=== PATIENT | female | born 1970 | race African-American/Black ===

== ENCOUNTER 2018-03-07 07:39 | Emergency (ER) | payer BC ==
--- NOTE | 2018-03-07 07:45 | PDOC ---
History of Present Illness - General Chief Complaint: Allergic Reaction Stated Complaint: ITCHING AND HIVES Time Seen by Provider: 03/07/18 07:44 History Source: Patient Exam Limitations: No Limitations - History of Present Illness Initial Comments: 03/07/18 08:01 Ms. Horan is a 47-year-old female with a history of hypothyroidism who presents to the emergency department with a complaint of diffuse pruritus. Patient states that her symptoms began approximately 6 PM. She notes that her entire body is itching and feels as though it's on fire. She's had no difficulty swallowing, no drooling. No nausea, no vomiting, no diarrhea. No pain. She notes that every area of her skin is pruritic. No fever or chills. No recent antibiotic use. No recent changes in medication. No recent travel. No arthropod bites. She lives in [place], has not gone camping. No history of anaphylaxis. Her symptoms have been nonstop since last night, she took Benadryl which did not improve her itching. No change in soap, lotion, detergent. She had crackers and cheese last night before this started. No other changes to her diet PMH: hypothyroidism PSH: denies Meds: levothyroxine ALL: NKDA Social: denies drug, alcohol, tobacco FH: Non contributory GENERAL/CONSTITUTIONAL: No: fever, chills, weakness, loss of appetite. HEAD, EYES, EARS, NOSE AND THROAT: No: change in vision, ear pain, discharge, sore throat, throat swelling. CARDIOVASCULAR: No: chest pain, lightheadedness, palpitations, syncope RESPIRATORY: No: cough, shortness of breath, wheezing, hemoptysis, stridor. GASTROINTESTINAL: No: nausea, vomiting, diarrhea, abdominal cramping, rectal bleeding, constipation. GENITOURINARY: No: dysuria, hematuria, frequency, urgency, flank pain. MUSCULOSKELETAL: No: back pain, neck pain, joint pain, muscle swelling or pain SKIN AND BREASTS: Yes: diffuse pruritis No: lesions NEUROLOGIC: No: headache, vertigo, paresthesias, weakness ENDOCRINE: No: unexplained weight gain or loss HEMATOLOGIC/LYMPHATIC: No: anemia, easy bleeding, swelling nodes. PE: GENERAL: The patient is in no acute distress, constantly itching. HEAD: Normal with no signs of trauma. EYES: PERRLA, EOMI, sclera anicteric, conjunctiva clear. ENT: Ears normal, nares patent, oropharynx clear without exudates. Moist mucous membranes. No uvula edema NECK: Normal range of motion, supple without lymphadenopathy, JVD, or masses. LUNGS: Breath sounds equal, clear to auscultation bilaterally. No wheezes, and no crackles. HEART:Regular rate and rhythm, normal S1 and S2 without murmur, rub or gallop. ABDOMEN: Soft, nontender, normoactive bowel sounds. No guarding, no rebound. No masses palpable. EXTREMITIES: Normal range of motion NEUROLOGICAL: Cranial nerves II through XII grossly intact. Normal speech. No focal neurological deficits. MUSCULOSKELETAL: Back non-tender to palpation, no CVA tenderness SKIN: Excoriations noted, no lesions noted between the fingers, no urticaria noted, Past History - Past Medical History Allergies/Adverse Reactions: Allergies Allergy/AdvReac Type Severity Reaction Status Date / Time No Known Allergies Allergy Verified 03/07/18 07:40 Home Medications: Ambulatory Orders Levocetirizine Dihydrochloride [Xyzal] 5 mg PO DAILY PRN #30 tablet 03/07/18 Levothyroxine [Synthroid -] 100 mcg PO DAILY 03/07/18 Methylprednisolone [Medrol Dose Marcus] 4 mg PO ASDIR #21 tablet 03/07/18 Thyroid Disease: Yes (HYPOTHYROID) - Suicide/Smoking/Psychosocial Hx Smoking Status: No Smoking History: Never smoked Have you smoked in the past 12 months: No Number of Cigarettes Smoked Daily: 0 Hx Alcohol Use: No Drug/Substance Use Hx: No Substance Use Type: None ED Treatment Course - LABORATORY CBC & Chemistry Diagram: 03/07/18 08:20 03/07/18 08:20 Medical Decision Making - Medical Decision Making 03/07/18 08:13 Miss Retana presents emergency department with diffuse pruritus. It is not quite typical for contact dermatitis as she is itching everywhere including her scalp. It is not quite typical for ALLERGIC reaction, as patient has no urticaria Other possible differential diagnoses include scabies, I do not see, no guzman or lesions suggestive of this. Possibly psoriasis, no plaques found. Possibly systemic illness like renal insufficiency versus cholestasis versus malignancy. Will send basic labs. Will give Solu-Medrol as well as Benadryl IV. Will encourage patient to follow up with her primary care physician promptly. 03/07/18 09:08 Laboratory Tests 03/07/18 03/07/18 08:20 08:20 WBC 6.3 Hgb 10.8 Hct 33.7 Plt Count 421 Sodium 134 L Potassium 3.9 Chloride 105 Carbon Dioxide 23 Anion Gap 6 L BUN 8 Creatinine 0.8 Random Glucose 86 D Total Bilirubin 0.4 Will ask pt to follow up with PMD as well as telegraph office telephone clerk Clinical impression: diffuse pruritis, initial presentation 03/07/18 09:30 Laboratory Tests 03/07/18 09:20 Urine HCG, Qual Negative *DC/Admit/Observation/Transfer Diagnosis at time of Disposition: Generalized pruritus - Discharge Dispostion Disposition: HOME Condition at time of disposition: Stable Decision to Admit order: No - Prescriptions Prescriptions: Levocetirizine Dihydrochloride [Xyzal] 5 mg PO DAILY PRN #30 tablet PRN Reason: itching Methylprednisolone [Medrol Dose Marcus] 4 mg PO ASDIR #21 tablet - Referrals - Patient Instructions Printed Discharge Instructions: DI for Itching Additional Instructions: Ms Horan Thank you for coming in to the ER today We have sent off some basic labs, which I have given you to review Please be sure to take medications as prescribed Please follow up with your primary care physician and an telegraph office telephone clerk within 1-2 days Please monitor yourself for any changes in your symptoms - a rash, peeling of your skin, lesions in your mouth, difficulty swallowing, fevers If you notice these things, please return to the ER Please take medications as prescribed Thank you for allowing us to care for you - Post Discharge Activity
[2018-03-07 07:48] VITALS: TEMP 98.6; BMI 30.4
[2018-03-07] MEDS ORDERED: methylPREDNISolone NA SUCC 125 MG/2 ML VIAL IVPUSH ONE (07:59)
[2018-03-07] MEDS ORDERED: methylPREDNISolone NA SUCC 125 MG/2 ML VIAL ONE (08:06)
[2018-03-07 08:37] LABS: HEMOGLOBIN 10.8 GM/dl (10.7-15.3); MCH 25.2 pg (25.7-33.7); RBC 4.28 M/mm3 (3.60-5.2); WHITE BLOOD COUNT 6.3 K/mm3 (4.0-10.8)
[2018-03-07 08:40] LABS: BASO % 0.8 % (0-2.0); EOS % 3.3 % (0-4.5); HEMATOCRIT 33.7 % (32.4-45.2); LYMPH % 16.7 % (8-40); MEAN CELL VOLUME 78.8 fl (80-96); MONO % 5.6 % (3.8-10.2); NEUT % 73.6 % (42.8-82.8); PLATELET COUNT 421 K/MM3 (134-434); RDW 15.6 % (11.6-15.6)
[2018-03-07 08:45] LABS: ALBUMIN 3.6 g/dl (3.5-5.0); ALK PHOS 63 U/L (32-92); ANION GAP 6 (8-16); BILIRUBIN,TOTAL 0.4 mg/dl (0.2-1.0); BLOOD UREA NITROGEN 8 mg/dl (7-18); CALCIUM 8.8 mg/dl (8.4-10.2); CHLORIDE 105 mmol/L (98-107); CO2 23 mmol/L (22-28); CREATININE 0.8 mg/dl (0.6-1.3); GLUCOSE,RANDOM 86 mg/dl (74-106); POTASSIUM 3.9 mmol/L (3.5-5.1); SGOT/AST 20 U/L (10-42); SGPT/ALT 13 U/L (10-40); SODIUM 134 mmol/L (136-145); TOT PROT 7.4 g/dl (6.4-8.3)
[2018-03-07 10:20] VITALS: BP 95/52; PULSE 75
== END 2018-03-07 10:50 | disposition home or self-care (01) ==
LOC: FER 07:39
PROC: 3E033GC Introduction of Other Therapeutic Substance into Peripheral Vein, Percutaneous Approach (ICD-10-PCS; principal; 2018-03-07)
DX: L29.9 Pruritus, unspecified (principal); E03.9 Hypothyroidism, unspecified
CPT/HCPCS: 36415; 80053; 84703; 85025; 99282-25